=== PATIENT | female | born 1985 | race Hispanic/Latino ===

== ENCOUNTER → 2018-03-18 | Day surgery (SDC) | payer OTHER ==
[~2018-03-18] VITALS: Ht 160 cm; Wt 88.5 kg
[~2018-03-18] MED LIST: EC-NAPROSYN500 MG PO
--- NOTE | 2018-03-18 07:26 | History & Physical Pre-Op ---
General Information and HPI History of Present Illness: Nanette is a 32-year-old female with a long-standing and worsening complaint of hallux limitus to her right foot. The patient has undergone an extended course of conservative care, including shoe gear and activity modification, rest, immobilization and courses of NSAIDs. None of this is yielded her any significant relief. The patient presents today for preoperative surgical consultation. The patient was referred to our office from Joel Baumann DPM. Allergies/Medications Allergies: Coded Allergies: No Known Allergies (03/14/18) Home Med list Naproxen (EC-Naprosyn) 500 MG TABLET.DR 1 TAB PO Q12H PRN PAIN/INFLAMMATION ( Reported) Past History Surgical History Pertinent Surgical History: cholecystectomy, , hysterectomy Review of Systems Review of Systems: Unremarkable except for that notedto present illness Exam & Diagnostic Data Physical Exam: Lungs clear bilaterally. Heart sounds rate and rhythm regular. Lower extremity physical exam demonstrates intact pedal pulses bilaterally. Pulses dorsalis pedis and posterior tibial arteries are palpable bilaterally. Sensory motor function grossly intact. Patient noted to have significant pain with palpation and range of motion through the right first metatarsophalangeal joint. There is exostoses identified dorsally at the metatarsal head. Assessment/Plan Assessment/Plan: Hallux limitus right foot. A lengthy discussion reviewing both surgical and conservative options was held the patient at bedside and the patient elected to go forward with surgery despite the risks. As Ranked By This Provider Problem List: 1. Hallux rigidus of right foot Attending MD Review Statement Attending Statement Attending MD Statement: examined this patient
--- NOTE | 2018-03-18 11:38 | Operative Report ---
Operative/Inv Procedure Report Surgery Date: 03/18/18 Name of Procedure: 1 bunionectomy right foot Pre-Operative Diagnosis: 1 hallux valgus right foot Post-Operative Diagnosis: The same Estimated Blood Loss: scant Surgeon/Manager Academic: Santos HENDERSON,Zachary Baumann DPM Anesthesia: moderate sedation, block Operative/Procedure Note Note: After obtaining informed consent the patient was brought to the operating room and placed on the operating table in the supine position. The patient isn't securely fastened to the operating table utilizing safety belt. After administration of IV sedation, 10 mL of 0.5% Marcaine plain was infiltrated about the patient's right ankle. 2 g of Ancef were delivered intravenously times one dose. A well-padded ankle tourniquet was placed about the patient's right lower extremity. The right foot and ankle within scrubbed prepped and draped in usual aseptic manner. Right lower extremity was elevated to examine to limb, which point the ankle tourniquet inflated 250 mmHg. Attention directed dorsal aspect the right foot, where 6 cm linear incision was made just medial to the course of the extensor hallucis longus tendon. Skin was as a 15 blade and carried down to the subtenons tissues. All vital neurovascular structures were identified protected. An inverted L capsulotomy was performed exposing the medial eminence. This was then removed a sagittal bone saw. Attention directed first interspace, where a lateral capsulotomy was performed with release of the fibular suspensory ligament and the oblique head of the abductor hallucis tendon. The extensor hallucis brevis tendon was identified and tenotomized. The capture structures reapproximated 3-0 Vicryl and the subtenons tissues reports a 4-0 Vicryl. The skin edges reapproximated 4-0 Monocryl. Incision dressed with Steri-Strips Xeroform 4 x 4's Kerlix and an Asa wrap. The patient was noted to tolerate both procedure and anesthesia well and the patient was transported from the operating room to recovery with vital signs stable best assess intact all digits right foot.
== END ==
LOC: STS 03:26
DX: M20.11 Hallux valgus (acquired), right foot (principal); M20.21 Hallux rigidus, right foot; K21.9 Gastro-esophageal reflux disease without esophagitis; F17.200 Nicotine dependence, unspecified, uncomplicated
CPT/HCPCS: J0690; J1885; J2001; J2250